=== PATIENT | female | born 1985 | race Caucasian/White ===

== ENCOUNTER → 2021-11-05 | Outpatient (CLI) | payer MEDICAID ==
--- NOTE | 2021-11-08 19:37 | MM ---
Reason for Exam: Screening (asymptomatic). Baseline mammogram. Patient History: Hormonal Contraceptives for 10 months from age 14 until age 24. Risk Values: Saray 5 year model risk: 0.2%. NCI Lifetime model risk: 6.8%. Film Views: Bilateral CC views were taken. Bilateral MLO views were taken. Prior Study Comparison: Patient's first Mammogram. Tissue Density: There are scattered fibroglandular densities. Findings: Analyzed By CAD. No significant mass, suspicious microcalcifications, or other discrete abnormality is seen. Overall Assessment: Negative, BI-RAD 1 Management: Screening Mammogram of both breasts at age 40. A clinical breast exam by your physician is recommended on an annual basis and results should be correlated with mammographic findings. Also, the patient should continue monthly self breast exams. Electronically signed and approved by: Andrew Mauricio M.D. Radiologist
== END | disposition home or self-care (01) ==
LOC: RADMAMWWP 10:10
PROVIDERS: ATTEND Obstetrics & Gynecology
DX: Z12.31 Encounter for screening mammogram for malignant neoplasm of breast (principal)
CPT/HCPCS: 77063; 77067

== ENCOUNTER → 2023-10-24 | Outpatient (CLI) | payer OTHER ==
[2023-10-24 15:08] LABS: Anion Gap 13.1 mmol/L (4.00-12.00); Carbon Dioxide 23.9 mmol/L (21.6-31.8); Potassium 3.9 mmol/L (3.5-5.5)
[2023-10-24 15:57] LABS: Basophils # (A) 0.09 X 10*3/uL (0.00-0.10); Basophils % (A) 1.2 %; Eosinophils # (A) 0.15 X 10*3/uL (0.04-0.35); Eosinophils % (A) 2.1 %; HCT 44.7 % (37.2-46.3); HGB 14.3 g/dL (12.0-15.0); Lymphocytes # (A) 2.69 X 10*3/uL (0.90-5.00); MCH 28.6 pg (27.0-32.0); MCV 89.4 FL (80.0-97.0); Monocytes # (A) 0.45 X 10*3/uL (0.20-1.00); Monocytes % (A) 6.2 %; NRBC Per 100 WBC 0 X 10*3/uL (0.00-0.01); Neutrophils # (A) 3.88 X 10*3/uL (1.80-7.70); Neutrophils % (A) 53.2 %; Platelet Count 367 X 10*3/uL (140-440); RDW 12.9 % (11.5-14.5); WBC 7.28 X 10*3/uL (4.50-10.00)
== END | disposition home or self-care (01) ==
LOC: LABPAT 10:49
PROVIDERS: ATTEND Orthopaedic Surgery Hand Surgery
DX: Z01.812 Encounter for preprocedural laboratory examination (principal); G56.01 Carpal tunnel syndrome, right upper limb
CPT/HCPCS: 36415; 80051; 85025

== ENCOUNTER → 2023-11-06 | Outpatient (CLI) | payer OTHER | END | disposition home or self-care (01) | LOC: LABPAT 13:52 | PROVIDERS: ATTEND Orthopaedic Surgery Hand Surgery | DX: Z01.818 Encounter for other preprocedural examination (principal); I10 Essential (primary) hypertension | CPT/HCPCS: 93005 ==

== ENCOUNTER 2023-11-08 06:42 | Day surgery (SDC) | payer OTHER ==
[2023-11-03 15:18] VITALS: BMI 48.4
--- NOTE | 2023-11-06 11:13 | P.HPOR ---
History of Present Illness H&P Date: 11/06/23 Subjective: This is a 38 year old female that presents today for follow up evaluation regarding a several year history of progressively worsening right hand paresthesias in the thumb, index, middle and ring fingers. The patient has tried bracing and steroid injections over the last several years with little relief. They deny any inciting event or neck pain. Her numbness is constant in the index and middle fingers. Physical Examination: RUE: AIN/PIN/Radial/Ulnar/Median motor intact. Radial/Ulnar/Median SILT. 2+/4 Radial/Ulnar pulses palpated. 5/5 APB, 5/5 FDI. Negative Finkelsteins, negative CMC grind, positive Durkan's compression. LUE: AIN/PIN/Radial/Ulnar/Median motor intact. Radial/Ulnar/Median SILT. 2+/4 Radial/Ulnar pulses palpated. 5/5 APB, 5/5 FDI. Negative Finkelsteins, negative CMC grind, positive Durkan's compression. EMG/NCV: EMG/NCV performed on 10/10/23 demonstrates bilateral moderate carpal tunnel syndrome Impression: 1.) Right carpal tunnel syndrome 2.) Left carpal tunnel syndrome Plan: Diagnosis and treatment options were discussed with the patient. The patient has failed conservative treatment and would like to pursue a right endoscopic vs open carpal tunnel release followed by a left endoscopic vs open carpal tunnel release 2 weeks later. Risks and benefits of surgery including bleeding, infection, damage to surrounding tissue, need for further surgery, possible need to convert to open procedure, residual numbness were discussed and the patient wished to go forward with surgery. CC: Willam Yanes MD -Nghia Babb DO Orthopedic Hand/Upper Extremity Surgeon Past Medical History Past Medical History: Fibromyalgia, GERD/Reflux, Hyperlipidemia, Hypertension, Musculoskeletal Disorder, Thyroid Disorder Additional Past Medical History / Comment(s): Ankylosing Spondylitis. History of Any Multi-Drug Resistant Organisms: None Reported Past Surgical History: Bariatric Surgery, Uterine Ablation Additional Past Surgical History / Comment(s): LAP BAND 2006, later removed. Past Anesthesia/Blood Transfusion Reactions: No Reported Reaction, Motion Sickness Smoking Status: Former smoker - Past Family History Mother Family Medical History: No Reported History Medications and Allergies Home Medications Medication Instructions Recorded Confirmed Type ALPRAZolam [Xanax] 0.5 mg PO BID PRN 11/03/23 11/03/23 History Atorvastatin [Lipitor] 40 mg PO HS 11/03/23 11/03/23 History Ergocalciferol [Vitamin D2 (1250 1,250 mcg PO TU 11/03/23 11/03/23 History Mcg = 66536 Iu)] Levothyroxine Sodium 125 mcg PO QAM 11/03/23 11/03/23 History Metoprolol Succinate (ER) [Toprol 100 mg PO HS 11/03/23 11/03/23 History Xl] Omeprazole 20 mg PO QAM 11/03/23 11/03/23 History Oxybutynin Chloride [oxyBUTYnin 10 mg PO DAILY 11/03/23 11/03/23 History chloride ER] Venlafaxine HCl [Effexor] 75 mg PO HS 11/03/23 11/03/23 History hydroCHLOROthiazide 25 mg PO QAM 11/03/23 11/03/23 History Allergies Allergy/AdvReac Type Severity Reaction Status Date / Time erythromycin base Allergy Rash/Hives Verified 11/03/23 14:11 Physical Examination Osteopathic Statement: *. No significant issues noted on an osteopathic s tructural exam other than those noted in the History and Physical/Consult.
[~2023-11-08 06:42] MED LIST: LIDOCAINE 1% (10MG/ML) FOR IV START INTRADERMA PRN; Pre Op ABX Message 1 EACH MISC MISCELLANE ONE
[2023-11-08] MEDS: LACTATED RINGERS 1,000 ML IV SCH (07:07)
[2023-11-08 07:29] LABS: Glucose,Whole Blood 100 mg/dL (70-110)
[2023-11-08] MEDS: ONDANSETRON 4 MG/2 ML VIAL IVP ONE (07:29)
[2023-11-08 07:52] VITALS: RESP 16; TEMP 98
[2023-11-08] MEDS ORDERED: PROPOFOL 10 MG/ML 20 ML VIAL IV ONE (07:52)
[2023-11-08] MEDS ORDERED: KETAMINE HCL IN 0.9 % NACL 50 MG/5 ML SYRINGE ONE (07:52)
[2023-11-08] MEDS ORDERED: fentaNYL (PF) 50 MCG/ML 2 ML AMP ONE (07:52)
[2023-11-08] MEDS ORDERED: MIDAZOLAM 2 MG/2 ML VIAL ONE (07:52)
[2023-11-08] MEDS: LIDOCAINE 2% INJ 20 MG/ML SQ ONE ×2 (07:54→08:00)
[2023-11-08] MEDS: BUPIVACAINE (PF) 0.5% 30 ML VIAL SQ ONE ×2 (07:55→08:00)
--- NOTE | 2023-11-08 08:15 | P.OP ---
Date of Procedure: 11/08/23 Preoperative Diagnosis: Right carpal tunnel syndrome Postoperative Diagnosis: Right carpal tunnel syndrome Procedure(s) Performed: Right endoscopic carpal tunnel release Anesthesia: MAC Surgeon: Nghia Babb Power Engineer #1: Benji Dixon Estimated Blood Loss (ml): 0 Pathology: none sent Condition: stable Disposition: PACU Description of Procedure: This is a 38 year old female who presents today for a right endoscopic carpal tunnel release after having failed conservative treatment in the past. Risks and benefits of surgery were discussed with the patient including bleeding, damage to surrounding tissue, infection, need to convert to open procedure, need for further surgery as well as risks of anesthesia including pulmonary embolism and even and the patient wished to proceed with surgical intervention. The patients was seen in the pre-operative area by myself. Consent and H&P were completed and updated. The correct extremity was marked in the pre-operative area by myself and all other questions were answered. Operative Narrative: The patient was brought to the operating room by the department of anesthesia. They remained on the portable stretcher and a rolling hand table was brought to the side of the operative extremity. Pre-operative time out was performed indicating the correct patient, procedure and laterality. All in the room agreed. The patient was then drifted off to sleep by the department of anesthesia. MAC anesthesia was utilized and a 50:50 mixture of 1% Lidocaine and 0.5% bupivacaine was injected into the subcutaneous tissues of the palmar skin, 8ccs total. A nonsterile tourniquet was then applied to the operative extremity and the right upper extremity was then prepped and draped in normal sterile fashion. The operative extremity was the exsanguinated with an esmarch bandage and the tourniquet was inflated to 250mmHg. 15 blade scalpel was utilized to make a transverse incision on the palmar skin just ulnar to the palmaris longus tendon at the level of the distal wrist crease. Ragnell retractor was then placed radially and blunt dissection was performed to reveal the distal forearm fascia. This was lifted with fine Rian pick ups and Littler tenotomy scissors were then used to open the forearm fascia transversely and a double skin hook was then placed. Hamate finder was placed into the carpal tunnel and then sequential sized dilators were inserted followed by the synovial elevator to separate the flexor tenosynovium from the undersurface of the transverse carpal ligament and a washboard texture was felt. The MicroAire endoscopic carpal tunnel release system gun was the then inserted into the carpal tunnel hugging the deep portion of the transverse carpal ligament in line with the base of the ring finger. Transverse fibers of the ligament were directly visualized. Pressure was applied on the palm to reveal the distal extent of the transverse carpal ligament. The blade was then deployed and the distal half of the transverse carpal ligament was released. The scope was then brought distal again and remaining transverse fibers were incised with the blade. The proximal half of the transverse carpal ligament was then divided and again the scope was advanced distal and remaining transverse fibers were incised with the blade. The radial and ulnar leaflets were directly visualized and mobile consistent with complete release. Tenotomy scissors were then utilized to release the remaining distal forearm fascia under direct visualization taking care to preserve the palmar cutaneous branch of the median nerve. Skin closure was performed with interrupted 4-0 Monocryl suture followed by steri strips. Sterile dressing was applied consisting 4x4s, Webril, and an noy bandage. Tourniquet was let down and the hand immediately was well perfused. The patient was then woken by the department of anesthesia and transferred to PACU in stable condition. Benji BUTLER was present for the case in its entirety and assisted in major portions of the case and protection of vital neurovascular structures. Nghia Babb D.O. Orthopedic Hand/Upper Extremity Surgeon
[2023-11-08 08:47] VITALS: BP 121/80; PULSE 73
== END 2023-11-08 08:58 | disposition home or self-care (01) ==
LOC: OR 06:42
PROVIDERS: ATTEND Orthopaedic Surgery Hand Surgery
DX: G56.01 Carpal tunnel syndrome, right upper limb (principal); E78.5 Hyperlipidemia, unspecified; E07.9 Disorder of thyroid, unspecified; I10 Essential (primary) hypertension; K21.9 Gastro-esophageal reflux disease without esophagitis; M79.7 Fibromyalgia; M45.9 Ankylosing spondylitis of unspecified sites in spine; Z79.890 Hormone replacement therapy; Z87.891 Personal history of nicotine dependence; Z88.1 Allergy status to other antibiotic agents; Z79.899 Other long term (current) drug therapy
CPT/HCPCS: 81025; 29848; J2001; J2250; J2405; J3010; J2704; J0665

== ENCOUNTER → 2024-08-28 | Outpatient (CLI) | payer BC ==
--- NOTE | 2024-08-28 18:50 | XR ---
EXAMINATION TYPE: XR cervical spine comp DATE OF EXAM: 08/28/2024 6:39 PM COMPARISON: none CLINICAL INDICATION: Female, 39 years old with history of M06.9, M45.7; PHH, pain TECHNIQUE: The cervical spine was imaged in frontal, lateral, odontoid and bilateral oblique. FINDINGS: The osseous structures show normal alignment without evidence of an acute fracture. No significant ve rtebral body osteophytes or facet joint arthropathy. The intervertebral disk spaces are preserved. Pe dicles are intact. Soft tissues are within normal limits. The odontoid appears intact. IMPRESSION: 1. No fracture or dislocation. 2. No significant degenerative disc disease changes of the cervical spine. [facility], , 08/28/2024 6:48 PM
--- NOTE | 2024-08-28 18:59 | XR ---
EXAMINATION TYPE: XR thoracic spine 2V, XR lumbosacral spine min 4V, XR sacroiliac joint comp BILAT DATE OF EXAM: 08/28/2024 6:39 PM COMPARISON: None CLINICAL INDICATION: Female, 39 years old with history of M06.9, M45.7; PHH, pain TECHNIQUE: XR thoracic spine 2V, XR lumbosacral spine min 4V, XR sacroiliac joint comp BILAT 4 views of the lumbar spine 3 views of the thoracic spine 4 views of the sacroiliac joints. FINDINGS: Minimal degeneration changes of the thoracic and lumbar spine. . Mild osteophyte formation and adjac ent sclerosis of the sacroiliac joints bilaterally and symmetrically. The supraspinous ligament does not appear to be ossified. No evidence of acute fracture. There is no evidence of disk space narrowi ng or loss of vertebral body height. There is normal alignment of the thoracic vertebral bodies. IMPRESSION: Mild degeneration changes of the sacroiliac joints with osteophyte formation and some adjacent sclero sis which could represent ankylosing spondylitis. [facility], , 08/28/2024 6:57 PM
== END | disposition home or self-care (01) ==
LOC: RADXRMAIN 17:35
PROVIDERS: ATTEND Pediatrics
DX: M06.9 Rheumatoid arthritis, unspecified (principal); M45.7 Ankylosing spondylitis of lumbosacral region; M53.3 Sacrococcygeal disorders, not elsewhere classified; M25.78 Osteophyte, vertebrae
CPT/HCPCS: 72050; 72070; 72110; 72202